=== PATIENT | male | born 1965 | race African-American/Black ===

== ENCOUNTER 2025-01-19 14:23 | Outpatient (CLI) | payer BC, SELFPAY ==
--- NOTE | ~2025-01-19 | PE_ITS ---
EXAMINATION: PET_PETPSMAST_PT DATE: 01/19/2025 16:39 INDICATION: Prostate cancer TECHNIQUE: 3.399 mCi of Illucix Ga-68([id number]) was administered i.v. Low dose computed goldie graphy (CT) images were acquired from the base of the brain to the base of the brain to the proximal thighs for attenuation correction and anatomic localization. Positron emission tomography (PET) image s were acquired in the same distribution beginning 94 minutes after injection. Images including fused PET/CT images were reconstructed in axial, coronal, and sagittal planes. Automated exposure control technique was employed. The dose-length product was 1069.79mGy-cm. COMPARISON: None FINDINGS: Head/neck: Typical pattern of symmetric physiologic increased activity in the lacrimal, parotid and submandibula r glands as well as along the mucosa of the nasal and oral cavities, pharynx and hypopharynx. Also re latively symmetric mild likely physiologic ganglia uptake at the bilateral C7-T1 neural foramina. No pathologically enlarged cervical lymphadenopathy or suspicious foci of increased uptake in the visual ized head or neck. Chest: Mild dependent atelectasis in both lungs. No suspicious pulmonary nodules or pleural effusion. Heart size is normal. No pericardial effusion. Ectatic ascending thoracic aorta measuring up to 4.1 cm in m aximal diameter. No pathologically enlarged or PSMA avid thoracic lymphadenopathy. Abdomen/pelvis/proximal thighs: Physiologic renal accumulation and excretion of activity in the kidneys, bladder and along portions o f ureters. Photopenic defects associated with bilateral renal cysts measuring 3.2 cm on the right and 1.4 cm on the left. Prostatomegaly measuring 6.2 x 5.2 cm. There is a small focus of increased uptak e with maximal SUV of 20 demonstrate slightly to the posteriorly and to the right of the epicenter of the prostate near a small dystrophic calcification and likely representing the site of the reported prostate cancer. Normal degree and slightly heterogenous pattern of increased uptake throughout the l iver and spleen without radiologic correlate or dominant PSMA avid lesion. The gallbladder, pancreas and bilateral adrenal glands are normal. Moderate uptake scattered throughout the bowels with typical duodenal and proximal jejunal predominance and without radiologic correlate, also likely physiologic . No other abnormal foci of increased uptake or pathologically enlarged lymphadenopathy in the abdome n, pelvis or proximal thighs. Musculoskeletal: Moderate lower cervical, mild thoracic and severe lumbar spondylosis. No suspicious lytic, blastic or abnormally PSMA avid bone lesions. Small focus of soft tissue uptake at the right forearm consistent with extravasation at the site of injection. IMPRESSION: 1. Single focus of prominent abnormal uptake in the central aspect of the enlarged prostate consisten t with primary prostate cancer. No lesion suspicious for metastatic disease. Reviewed, dictated and finalized at location A. IMPRESSION: 1. Single focus of prominent abnormal uptake in the central aspect of the enlar ged prostate consistent with primary prostate cancer. No lesion suspicious for metastatic disease.
--- OUTSIDE RECORDS SUMMARY | 2025-01-19 14:34 | XMS_ITS | Clinical Summary ---
Author Organization [facility] Address [address] [place] [address] Phone Care Team Providers Care Product Director Name Role Phone Unavailable Primary Care Provider Unavailabl e Allergies Active Allergy Reactions Criticality Noted Date Comments Penicillins Rash 11/13/2011 Medications ibuprofen 800 MG PO TABSIndications :Right shoulder pain,Gluteal pain Take 1 Tab by mouth every 8 hours as needed for 34 days. 60 Tab 0 2 Active ibuprofen 800 MG PO TABSIndications :Lumbar strain Take 1 Tab by mouth every 8 hours. 270 Tab 3 2 Active lisinopril 10 MG PO TABSIndications :Hypertension Take 1 Tab by mouth daily. 90 Tab 1 3 Active Additional Information Patient not taking.Reported on 08/06/2017 amLODIPine (NORVASC) 10 MG Tablet Take 10 mg by mouth every evening. 4 7 Active benazepril (LOTENSIN) 20 MG Tablet Take 20 mg by mouth daily. 4 7 Active carvedilol (COREG) 12.5 MG Tablet 1 Tab daily. 3 7 Active cloNIDine (CATAPRES) 0.1 MG Tablet 1 Tab daily. 3 7 Active omeprazole (PRILOSEC) 40 MG CAPSULE DELAYED RELEASE Take 40 mg by mouth as needed. 4 7 Active cyclobenzaprine (FLEXERIL) 10 MG Tablet Take 1 Tab by mouth 2 times daily as needed for Muscle spasms. 60 Tab 8 Active Active Problems Problem Noted Date Diagnosed Date Gluteal pain 03/31/2012 Lower back pain 03/31/2012 Seasonal allergies 03/26/2012 Nasal congestion 03/26/2012 Right hip pain 03/26/2012 Diverticula, intestine 12/06/2011 Diarrhea 11/13/2011 Difficulty urinating 11/13/2011 Foot pain 11/13/2011 Hypertension 06/21/2011 Resolved Problems Problem Noted Date Diagnosed Date Resolved Date Cough 03/26/2012 06/19/2012 Person with feared complaint , no diagnosis made 03/06/2012 03/26/2012 Medication adverse effect 11/13/2011 Loss of weight 11/13/2011 06/19/2012 Routine screening for STI (s exually transmitted infection) 11/13/2011 06/19/2012 Urinary pain 11/13/2011 11/13/2011 Screening 11/13/2011 06/19/2012 Right shoulder pain 08/29/2011 06/19/20 12 Gluteal pain 08/29/2011 11/13/2011 Annual physical exam (Adult) 06/21/2011 11/13/2011 Fatigue 06/21/2011 11/13/2011 Screening 06/21/2011 11/13/2011 Irregular heart rhythm 06/21/201106/19 Minor depression 06/21/2011 11/13/2011 Social History Tobacco Use Types Packs/Day Years Used Date Smoking Tobacco: Never Smokeless Tobacco: Never Tobacco Cessation:Counseling Given: No Alcohol Use Standard Drinks/Week Comments Yes 0 (1 standard drink = 0.6 oz pur e alcohol) wine Sexually Active Control Partners Comments Yes Sex and Gender Information Value Date Recorded Sex Assigned at Not on file Legal Sex Male 3:52 AM IT PROGRAMMER ANALYST Gender Identity Not on file Sexual Orientation Not on file Last Filed Vital Signs Vital Sign Reading Time Taken Comments Blood Pressure 140/78 08/06/2017 2:35 PM IT PROGRAMMER ANALYST Pulse 67 08/06/2017 2:35 PM IT PROGRAMMER ANALYST Temperature 36.7 C (98.1 F) 08/10/2012 5:20 PM IT PROGRAMMER ANALYST Respiratory Rate 16 08/06/2017 2:35 PM IT PROGRAMMER ANALYST Oxygen Saturation 99% 08/06/2017 2:35 PM IT PROGRAMMER ANALYST Inhaled Oxygen Concentration - - Weight 83.5 kg (184 lb) 08/06/2017 2:35 PM IT PROGRAMMER ANALYST Height 177.8 cm (5' 10) 08/06/2017 2:35 PM IT PROGRAMMER ANALYST Body Mass Index 26.4 08/06/2017 2:35 PM IT PROGRAMMER ANALYST Plan of Treatment Health Maintenance Due Date Last Done Comments TdaP Immunization 1965 Cologuard 2008 Colonoscopy 2008 Colorectal Cancer Screening 2008 Immunochemical Fecal Occult Blood 2008 Pneumococcal Immunization (5 0+ years) (1 of 1 - PCV) 2013 Zoster Immunization (1 of 2) 2013 SARS-COV-2 Immunization (1 - 2023-25 season) 2024 Influenza Immunization (#1) 2025 Respiratory Syncytial Virus (RSV) Immunization (Adult) (1 - 1-dose 75+ series) 2038 Hepatitis C Virus (HCV) Screening Completed 11/13/2011 PSA Discussion Discontinued 06/19/2012, 06/21/2011 Hepatitis B Immunization Aged Out No longer eligible based on patient's age to complete this topic Human Papillomavirus (HPV) Immunization Aged Out No longer eligible based on patient's age to complete this topic Meningococcal Immunization (ACWY) Aged Out No longer eligible based on patient's age to complete this topic Rotavirus Immunization Aged Out No lo nger eligible based on patient's age to complete this topic Procedures Procedure Name Priority Date/Time Associated Diagnosis Comments PSA DIAGNOSTIC,TOTAL Routine 06/19/2012 4:54 PM IT PROGRAMMER ANALYST Groin pain HEPATITIS PANEL ACUTE (AHP) Routine 11/13/2011 10:52 AM CDT Routine screening for STI (sexually transmitted infection) from Last 3 Months or Most Recently Relevant to Health Maintenance Results * PSA DIAGNOSTIC (06/19/2012 4:54 PM IT PROGRAMMER ANALYST) PSA (PROSTATE SPECIFIC ANTIGEN) 2.7 <4.0 NG/ML [facility] Blood specimen (specimen) 06/19/2012 4:54 PM IT PROGRAMMER ANALYST 06/19/2012 7:28 PM IT PROGRAMMER ANALYST us Jer Deluca DO CHEMISTRY ORDERABLES Final Result [facility] [address] [place] [address] * HEPATITIS PANEL ACUTE (AHP) (11/13/2011 10:52 AM CDT) HEPATITIS A IGM ANTIBODY NON DETECTED NON DETECTED [facility] Comment: IGM ANTIBODIES TO HAV NOT DETECTED, DOES NOT EXCLUDE EARLY ACUTE OR RECOVERED HAV INFECTION. HEP B CORE AB (IGM) NON DETECTED NON DETECTED [facility] Comment: IGM ANTI-HBC NOT DETECTED. DOES NOT EXCLUDE THE POSSIBILITY OF EXPOSURE TO OR INFECTION WITH HBV. HEPATITIS B SURFACE ANTGEN NON DETECTED NON DETECTED [facility] hepatitis C antibody NON DETECTED NON DETECTED [facility] Comment: ANTIBODIES TO HCV NOT DETECTED: DOES NOT EXCLUDE EARLY ACUTE HCV INFECTION. Performed at [facility], [place] [address]. Blood specimen (specimen) 11/13/2011 10:52 AM CDT 11/13/2011 12:14 PM CDT Susie Chin MERCHANT PATROLLER, AUTOMATION QA TESTER HEMATOLOGY ORDER HOANG Final Result [place] [id number] [place] [address] from Last 3 Months or Most Recently Relevant to Health Maintenance Insurance
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
--- OUTSIDE RECORDS SUMMARY | 2025-01-19 14:35 | XMS_ITS | Clinical Summary ---
Author Organization [facility] Address [address] [place] [address] Care Team Providers Care Independent Contractor Name Role Phone Navya Garibay NP Primary Care Provider [phone] Allergies Active Allergy Reactions Criticality Noted Date [...] Active Active Problems No known active problems Encounters Date Type Department Care Team Description 12/09/[address] [place] [phone] Navya Garibay NP 11/24/2024 Results Follow-Up [address] [place] [phone] Cherie Beck NP XR Sacrum Coccyx 2 or More Views 11/23/2024 12:59 PM CDT - 11/23/2024 11:59 PM CDT Hospital Encounter [facility] Diagnostic Imaging [address] [place] [address] Acute left-sided low back pain, unspecified whether sciatica present; Acute pain of left knee; Left hip pain Discharge Disposition: Discharge to home or self care 11/23/2024 11:30 AM CDT Office Visit [place] [id number] [place] [phone] Cherie Beck NP Left hip pain (Primary Dx); Acute pain of left knee; Acute left-sided low back pain, unspecified whether sciatica present 11/23/[address] [place] [phone] Navya Garibay NP Medical Records Request 11/23/[address] [place] [phone] Navya Garibay NP Patient Running Late For Apt 11/22/2024 Nurse Triage [address] [place] [address] Navya Garibay NP from Last 3 Months Immunizations Immunization Administration Dates Next Due Influenza, Unspecified 04/13/2024(Deferr ed: Patient Refused),04/13/2023(Deferred: Patient Refused) Surgical History Surgery Date Site/Laterality Comments POLYPECTOMY Medical History Medical History Date Comments Hypertension Inguinal hernia Achilles tendon injury Family History Medical History Relation Name Comments Hypertension Mother Relation Name Status Comments Father Mother Alive Social History Tobacco Use Types Packs/Day Years [...] on file Legal Sex Male 8:00 PM GRIPPER ATTACHER Gender Identity Not on file Sexual Orientation Not on file Obstetrics History Last Filed Vital Signs Vital Sign Reading Time Taken Comments Blood Pressure 138/72 11/23/2024 11:58 AM CDT Pulse 58 11/23/2024 11:58 AM CDT Temperature 36.3 C (97.4 F) 11/23/2024 11:58 AM CDT Respiratory Rate 18 09/10/2024 11:5 6 AM GRIPPER ATTACHER Oxygen Saturation 98% 11/23/2024 11: 58 AM CDT Inhaled Oxygen Concentration - - Weight 84.7 kg (186 lb 12.8 oz) 025 11:58 AM CDT Height 177.8 cm (5' 10) 11/23/2024 11: 58 AM CDT Body Mass Index 26.8 11/23/2024 11:58 AM CDT Plan of Treatment Health Maintenance Due Date Last Done Comments Colon Cancer Screening-Colonoscopy 1965 Hepatitis C Screening 1965 DTaP/Tdap/Td Vaccine (1 - Tdap) 1974 Hepatitis B Screening 1981 Regular Well Visit/Exam 18-64 1981 Zoster Vaccine (1 of 2) 2013 Covid-19 Vaccine (2 - 2023-2 5 season) 2024 01/02/2021 Influenza Vaccine (Season Ended) 2025 Depression Screening 09/10/2025 09/10/2024 Prostate Cancer Screening-PSA 09/21/2026 09/21/2024 Pneumococcal vaccine <65 Aged Out No longer eligible based on [...] by Jer Sanders M.D. T: Report ID: [id number] Reading Location: [id number] Procedure Note Jer Sanders MD - 11/24/2024 [...] by Jer Sanders M.D. T: Report ID: [id number] Reading Location: [place] [address] Cherie Beck NP IMG XR PROCEDURES Final [...] by Jer Sanders M.D. T: Report ID: [id number] Reading Location: [id number] Procedure Note Jer Sanders MD - 11/24/2024 [...] by Jer Sanders M.D. T: Report ID: [id number] Reading Location: [id number] Cherie Beck SUPERVISOR FINISHING DEPARTMENT IMG XR PROCEDURES Final Result * XR [...] by Jer Sanders M.D. T: Report ID: [id number] Reading Location: [place] [address] Procedure Note Jer Sanders MD - 11/24/2024 [...] by Jer Sanders M.D. T: Report ID: [id number] Reading Location: [id number] Cherie Beck NP IMG XR PROCEDURES Final [...] 1:15 PM CDT 09/21/2024 1:37 PM CDT Navya Garibay NP LAB BLOOD ORDERABLES Final Res ult [facility] [address] Department [place] [address] from Last 3 Months or Most Recently Relevant to Health Maintenance Insurance [address] [place] [address] [employer] OOS Docal[employer] OOS [employer] OOS Care Teams Independent Contractor Relationship Specialty Start Date End Date Navya Garibay NP PCP - General Family Medicine 09/10/24
== END 2025-01-19 14:24 | disposition home or self-care (01) ==
PROVIDERS: Visit Provider Urology
DX: C61 Malignant neoplasm of prostate (principal)
CPT/HCPCS: 78815; A9596